=== PATIENT | female | born 1945 | race Caucasian/White ===

== ENCOUNTER 2019-08-25 01:18 | Outpatient (CLI) | payer MEDICARE, OTHER, SELFPAY ==
--- NOTE | 2019-08-25 | DI.NM_ITS ---
APPROVED REPORT Exam: Pharmacologic Patient Location: Out-Patient Room/Bed: Stress Nurse: Delmy Morrow RN BMI: 36.27 Baseline Rhythm: Sinus Rhythm, LBBB Indications: Patient is testing for clearance for cholecystectomy in August 2019. Medical History Medical History: Cardiomyopathy, Obesity, Chronic Ischemic Heart Disease. Cardiac Medications: Aspirin, Atorvastatin, Carvedilol, Lisinopril, Timolol Eye Drops, Nitroglycerin SL. Allergies: Penicillin, Peanuts. Cardiac Risk Factors: FHX of CAD, HTN, Hyperlipidemia, Diabetes (non-insulin), COPD Previous Cardiac Procedures: Myocardial infarction, PCI, Stent X 1. Exercise History: Physically active Lung Sounds: Clear to auscultation Stress Test Details Test: Pharmacologic stress testing performed using 0.4 mg of regadenoson per 5 mL given IV over 10 s econds. Reason for pharmacologic stress test: LBBB. Nuclear Acquisition: Rest Tc-99m/Stress Tc-99m 1 day Rest Isotope: Tc-99m Sestamibi. Dose: 10.2 Date: 08/25/2019 Injection Time: 0940 Stress Isotope: Tc-99m Sestamibi. Dose: 32.6 Date: 08/25/2019 Injection Time: 1240 HR Resting HR Supine: 63 bpm Max Heart Rate (APMHR): 148 bpm Target HR (85% APMHR): 125 bpm Max HR Achieved: 87 bpm % of APMHR: 58 BP Resting BP Supine: 170/90 mmHg Max BP: 170/90 mmHg ECG Resting ECG: Sinus Rhythm, LBBB Stress ECG: No significant ST segment elevation noted. ST Change: Nondiagnostic Arrhythmia: None Recovery ECG: Sinus Rhythm, LBBB Recovery ST Change: Nondiagnostic Comment: Rare PAC. Clinical Stress Symptoms: None reported by patient. Stress ECG Conclusion 1. The ECG portion of this exam was nondiagnostic due to baseline left bundle branch block. Protocol Used: Regadenoson Stress Test Summary STAGE HR BP Symptoms NOTES Supine 63 170/90 1 min post Lexiscan injection 86 150/86 3 min post Lexiscan injection 84 148/90 6 min post Lexiscan injection 79 180/80 MPI Conclusion There was a large nonreversible area of infarction of the anterior wall and apex. There was no sarah- infarct ischemia. The ejection fraction was 29% with stress. There was hypokinesis of the anterior wall and entire ape x. This represents an abnormal SPECT stress test. Radiologist Interpretation Radiologist agrees with Ambulatory Care Coordinator's Interpretation. Radiologist Interpretation by: Carola Kelly MD Interpretation Date/Time: 08/26/2019 15:33:56
[2019-08-25] MEDS: Regadenoson 0.4 MG/5 ML SYR IVP (12:40)
== END 2019-08-25 01:38 ==
PROVIDERS: PCP Internal Medicine; Visit Provider Internal Medicine Interventional Cardiology
DX: I25.10 Atherosclerotic heart disease of native coronary artery without angina pectoris (principal); I42.9 Cardiomyopathy, unspecified; I44.7 Left bundle-branch block, unspecified; I25.9 Chronic ischemic heart disease, unspecified; I10 Essential (primary) hypertension; E78.5 Hyperlipidemia, unspecified; Z01.810 Encounter for preprocedural cardiovascular examination; Z82.49 Family history of ischemic heart disease and other diseases of the circulatory system
CPT/HCPCS: 78452; 93016; 93018; 93017; J2785